=== PATIENT | male | born 1960 | race Caucasian/White ===

== ENCOUNTER 2017-03-12 16:07 | Emergency (ER) | payer MEDICAID | END 2017-03-12 19:00 | disposition home or self-care (01) | LOC: FTE 16:07 | DX: L02.212 Cutaneous abscess of back [any part, except buttock and flank] (principal); I12.0 Hypertensive chronic kidney disease with stage 5 chronic kidney disease or end stage renal disease; N18.6 End stage renal disease; E11.22 Type 2 diabetes mellitus with diabetic chronic kidney disease; Z99.2 Dependence on renal dialysis | CPT/HCPCS: 99284; Z7502 ==